=== PATIENT | male | born 1965 | race American Indian/Alaskan Native ===

== ENCOUNTER 2016-12-21 07:06 | Emergency (ER) | payer SELFPAY ==
[2016-12-21] MEDS ORDERED: ZITHROMAX PO ONE (07:47)
[2016-12-21] MEDS ORDERED: ROBITUSSIN DM PO ONE (07:47)
[2016-12-21] MEDS ORDERED: DUONEB 0.5 MG-3 MG/3 ML SOLN IH ONE (07:47)
[2016-12-21] MEDS ORDERED: DELTASONE PO ONE (07:48)
[2016-12-21 08:28] LABS: Basophils % (Auto) 0.5 % (0.0-1.8); Hematocrit 39.7 % (35.5-45.6); Hemoglobin 13.3 gm/dl (11.8-15.2); Mean Corpuscular HGB Conc 34 % (32-34); Mean Corpuscular Hemoglobin 28 pg (28-32); Mean Corpuscular Volume 84 fl (84-94); Platelet Count 213 K/mm3 (140-440); Red Blood Count 4.75 M/mm3 (3.65-5.03); Red Cell Distribution Width 13.8 % (13.2-15.2); White Blood Count 6.3 K/mm3 (4.5-11.0)
[2016-12-21 08:40] LABS: Anion Gap 15 mmol/L; Blood Urea Nitrogen 12 mg/dL (9-20); Calcium 9.2 mg/dL (8.4-10.2); Carbon Dioxide 24 mmol/L (22-30); Chloride 104.9 mmol/L (98-107); Glucose 102 mg/dL (75-100); Potassium 4.3 mmol/L (3.6-5.0); Sodium 140 mmol/L (137-145)
--- NOTE | 2016-12-21 09:11 | XRay Report ---
Chest 2 views: Compared to 06/21/15. History: Rhonchi. PNA Findings: Normal cardiomediastinal silhouette. Trachea is midline. No consolidation, pneumothorax or pleural effusion. Impression: No acute cardiopulmonary findings.
--- NOTE | 2016-12-21 09:23 | Emergency Department Report ---
- General Chief Complaint: Upper Respiratory Infection Stated Complaint: COUGH, CHEST CONGESTION Time Seen by Provider: 12/21/16 07:37 Source: patient Mode of arrival: Ambulatory Limitations: No Limitations - History of Present Illness Initial Comments: 51-year-old male past medical history asthma presents with complaint of 2-3 weeks of productive cough with yellowish greenish sputum. Patient denies smoking. States he has had intermittent fever and chills. Denies any nausea or vomiting no chest pain no palpitations does not feel short of breath. Patient speaking in full sentences awake alert and oriented 3 not in acute distress. States he has not been taking anything for the cough. States he feels slightly wheezy today which is why he came into the ED. No audible wheezing no visible respiratory distress. States he has a slightly runny nose denies any sore throat or earache. Denies any recent travel. Denies any recent contact with anyone who had influenza. no recent hospitalizations. Onset/Timin -: week(s) Severity: moderate Severity scale (0 -10): 6 Consistency: intermittent Improves With: nothing Worsens With: nothing Associated Symptoms: fever, cough - Related Data Previous Rx's Medication Instructions Recorded Last Taken Type Acetaminophen/Codeine [Tylenol #3] 1 tab PO Q6H PRN #12 tab 12/27/13 Unknown Rx Albuterol Sulfate [Ventolin HFA] 2 puff IH Q4H PRN #1 hfa.aer.ad 12/27/13 Unknown Rx Benzonatate [Tessalon Perles] 100 mg PO Q8HR #30 capsule 12/27/13 Unknown Rx methOCARBAMOL [Robaxin] 500 mg PO BID #30 tab 07/27/14 Unknown Rx Azithromycin [Zithromax Z-WILMER] 250 mg PO DAILY #6 tablet 09/06/14 Unknown Rx Promethazine /Codeine 5 ml PO Q6H PRN #120 ml 09/06/14 Unknown Rx [Phenergan/Codeine 6.25-10 mg/5 ml] Acetaminophen/Codeine 1 tab PO Q6H PRN #25 tab 02/03/15 Unknown Rx [Acetaminophen-Codeine #3 TAB] Ibuprofen [Motrin 600 MG tab] 600 mg PO Q8H PRN #30 tablet 02/03/15 Unknown Rx Ibuprofen [Motrin 800 MG tab] 800 mg PO Q8HR PRN #30 tablet 04/06/15 Unknown Rx Prednisone [predniSONE 10 mg 10 mg PO .TAPER #1 tab.ds.pk 04/06/15 Unknown Rx (6-Day Pack, 21 Tabs)] diphenhydrAMINE [Benadryl] 25 mg PO Q6HR PRN #20 capsule 04/06/15 Unknown Rx Albuterol Sulfate [Ventolin HFA] 2 puff IH Q4H PRN #1 hfa.aer.ad 06/21/15 Unknown Rx Azithromycin [Zithromax Z-WILMER] 250 mg PO DAILY #6 tablet 06/21/15 Unknown Rx Prednisone [predniSONE 10 mg 10 mg PO .TAPER #1 tab.ds.pk 06/21/15 Unknown Rx (6-Day Pack, 21 Tabs)] Promethazine /Codeine 5 ml PO Q6H PRN #150 ml 06/21/15 Unknown Rx [Phenergan/Codeine 6.25-10 mg/5 ml] ALBUTEROL Inhaler [ProAir HFA 2 puff IH QID PRN #1 inhalation 12/21/16 Unknown Rx Inhaler] Azithromycin [Zithromax Z-WILMER] 250 mg PO QDAY #4 tablet 12/21/16 Unknown Rx Naproxen [Naprosyn TAB] 375 mg PO BID PRN #20 tablet 12/21/16 Unknown Rx predniSONE [Deltasone] 40 mg PO QDAY #10 tablet 12/21/16 Unknown Rx Allergies Allergy/AdvReac Type Severity Reaction Status Date / Time No Known Allergies Allergy Verified 06/21/15 19:53 ED Review of Systems ROS: Stated complaint: COUGH, CHEST CONGESTION Other details as noted in HPI Constitutional: denies: chills, fever Eyes: denies: eye pain, eye discharge, vision change ENT: denies: ear pain, throat pain Respiratory: cough. denies: shortness of breath, wheezing Cardiovascular: denies: chest pain, palpitations Endocrine: no symptoms reported Gastrointestinal: denies: abdominal pain, nausea, diarrhea Genitourinary: denies: urgency, dysuria Musculoskeletal: denies: back pain, joint swelling, arthralgia Skin: denies: rash, lesions Neurological: denies: headache, weakness, paresthesias Psychiatric: denies: anxiety, depression Hematological/Lymphatic: denies: easy bleeding, easy bruising ED Past Medical Hx - Past Medical History Previous Medical History?: Yes Hx Asthma: Yes (bronchitis) Additional medical history: BRONCHITIS - Surgical History Past Surgical History?: No - Social History Smoking Status: Never Smoker Substance Use Type: None - Medications Home Medications: Home Medications Medication Instructions Recorded Confirmed Last Taken Type Acetaminophen/Codeine [Tylenol #3] 1 tab PO Q6H PRN #12 tab 12/27/13 Unknown Rx Albuterol Sulfate [Ventolin HFA] 2 puff IH Q4H PRN #1 hfa.aer.ad 12/27/13 Unknown Rx Benzonatate [Tessalon Perles] 100 mg PO Q8HR #30 capsule 12/27/13 Unknown Rx methOCARBAMOL [Robaxin] 500 mg PO BID #30 tab 07/27/14 Unknown Rx Azithromycin [Zithromax Z-WILMER] 250 mg PO DAILY #6 tablet 09/06/14 Unknown Rx Promethazine /Codeine 5 ml PO Q6H PRN #120 ml 09/06/14 Unknown Rx [Phenergan/Codeine 6.25-10 mg/5 ml] Acetaminophen/Codeine 1 tab PO Q6H PRN #25 tab 02/03/15 Unknown Rx [Acetaminophen-Codeine #3 TAB] Ibuprofen [Motrin 600 MG tab] 600 mg PO Q8H PRN #30 tablet 02/03/15 Unknown Rx Ibuprofen [Motrin 800 MG tab] 800 mg PO Q8HR PRN #30 tablet 04/06/15 Unknown Rx Prednisone [predniSONE 10 mg 10 mg PO .TAPER #1 tab.ds.pk 04/06/15 Unknown Rx (6-Day Pack, 21 Tabs)] diphenhydrAMINE [Benadryl] 25 mg PO Q6HR PRN #20 capsule 04/06/15 Unknown Rx Albuterol Sulfate [Ventolin HFA] 2 puff IH Q4H PRN #1 hfa.aer.ad 06/21/15 Unknown Rx Azithromycin [Zithromax Z-WILMER] 250 mg PO DAILY #6 tablet 06/21/15 Unknown Rx Prednisone [predniSONE 10 mg 10 mg PO .TAPER #1 tab.ds.pk 06/21/15 Unknown Rx (6-Day Pack, 21 Tabs)] Promethazine /Codeine 5 ml PO Q6H PRN #150 ml 06/21/15 Unknown Rx [Phenergan/Codeine 6.25-10 mg/5 ml] ALBUTEROL Inhaler [ProAir HFA 2 puff IH QID PRN #1 inhalation 12/21/16 Unknown Rx Inhaler] Azithromycin [Zithromax Z-WILMER] 250 mg PO QDAY #4 tablet 12/21/16 Unknown Rx Naproxen [Naprosyn TAB] 375 mg PO BID PRN #20 tablet 12/21/16 Unknown Rx predniSONE [Deltasone] 40 mg PO QDAY #10 tablet 12/21/16 Unknown Rx ED Physical Exam - General Limitations: No Limitations General appearance: alert, in no apparent distress - Head Head exam: Present: atraumatic, normocephalic - Eye Eye exam: Present: normal appearance, PERRL, EOMI - ENT ENT exam: Present: mucous membranes moist - Neck Neck exam: Present: normal inspection, full ROM - Respiratory Respiratory exam: Present: wheezes (minimal wheezing right lower lung field). Absent: respiratory distress - Cardiovascular Cardiovascular Exam: Present: regular rate, normal rhythm. Absent: systolic murmur, diastolic murmur, rubs, gallop - GI/Abdominal GI/Abdominal exam: Present: soft, normal bowel sounds - Rectal Rectal exam: Present: deferred - Extremities Exam Extremities exam: Present: normal inspection, full ROM - Back Exam Back exam: Present: normal inspection, full ROM - Neurological Exam Neurological exam: Present: alert, oriented X3, CN II-XII intact, normal gait - Psychiatric Psychiatric exam: Present: normal affect, normal mood - Skin Skin exam: Present: warm, dry, intact, normal color. Absent: rash ED Course Vital Signs 12/21/16 12/21/16 07:18 08:08 Temperature 98.2 F Pulse Rate 58 L Pulse Rate [ 78 Right Lower Lobe] Respiratory 18 Rate Respiratory 16 Rate [Right Lower Lobe] Blood Pressure 121/80 O2 Sat by Pulse 98 Oximetry ED Medical Decision Making - Lab Data Result diagrams: 12/21/16 07:52 12/21/16 07:52 - Medical Decision Making A/P: Reactive airway disease, acute bronchitis 1-albuterol inhaler refill, nebulizer refill, naproxen when necessary, guaifenessin when necessary, Z-Wilmer, prednsine 5 day course 2- states he will follow up with his primary care doctor this week 3-patient is fully ambulatory upon discharge does not feel short of breath, states he feels significantly better after one nebulizer treatment, o2 sat 99% after walking Critical care attestation.: If time is entered above; I have spent that time in minutes in the direct care of this critically ill patient, excluding procedure time. ED Disposition Clinical Impression: Reactive airway disease Qualifiers: Asthma severity: mild intermittent Asthma complication type: uncomplicated Qualified Code(s): J45.20 - Mild intermittent asthma, uncomplicated Acute bronchitis Qualifiers: Bronchitis organism: unspecified organism Qualified Code(s): J20.9 - Acute bronchitis, unspecified Disposition: DISCHARGED TO HOME OR SELFCARE Is pt being admited?: No Does the pt Need Aspirin: No Condition: Stable Instructions: Acute Bronchitis (ED), Reactive Airways Disease (ED) Prescriptions: ALBUTEROL Inhaler [ProAir HFA Inhaler] 2 puff IH QID PRN #1 inhalation PRN Reason: Shortness Of Breath Azithromycin [Zithromax Z-WILMER] 250 mg PO QDAY #4 tablet Naproxen [Naprosyn TAB] 375 mg PO BID PRN #20 tablet PRN Reason: Cough predniSONE [Deltasone] 40 mg PO QDAY #10 tablet Referrals: GAVI CRAWFORD MD [Staff Physician] - 3-5 Days Forms: Work/School Release Form(ED) Time of Disposition: 09:40
[2016-12-21 09:59] VITALS: BP 115/66
== END 2016-12-21 09:58 | disposition home or self-care (01) ==
LOC: ED 07:06
DX: J45.20 Mild intermittent asthma, uncomplicated (principal); J20.9 Acute bronchitis, unspecified
CPT/HCPCS: 36415; 71020; 80048; 82805; 85025; 99284; J7512

== ENCOUNTER 2019-02-15 12:17 | Emergency (ER) | payer OTHER ==
[2019-02-15 13:02] VITALS: BP 134/77
--- NOTE | 2019-02-15 13:03 | Emergency Department Report ---
Chief Complaint: Upper Respiratory Infection Stated Complaint: FLU LIKE SYM Time Seen by Provider: 02/15/19 13:00 - HPI History of Present Illness: This is a 53 y.o. male that presents to the ER with flu like symptoms x 3 days. CC: productive cough, sore throat, wheezing, myalgia PMH of bronchitis Nonsmoker - Exam Vital Signs: Vital Signs 02/15/19 13:00 Temperature 98.2 F Pulse Rate 66 Respiratory 20 Rate Blood Pressure 134/77 [Right] O2 Sat by Pulse 97 Oximetry MSE screening note: Focused history and physical exam performed. Due to findings the following was ordered: CXR ED Disposition for MSE Condition: Stable
--- NOTE | 2019-02-15 14:01 | XRay Report ---
ROUTINE CHEST, TWO VIEWS: HISTORY: Cough. The trachea, heart, mediastinal contour, lung rivero and bony thorax are unremarkable. IMPRESSION: Unremarkable chest x-ray.
[2019-02-15] MEDS ORDERED: ROBITUSSIN PO ONE (14:19)
[2019-02-15] MEDS ORDERED: DELTASONE PO ONE (14:19)
--- NOTE | 2019-02-15 14:23 | Emergency Department Report ---
Minor Respiratory - HPI Chief Complaint: Upper Respiratory Infection Stated Complaint: FLU LIKE SYM Time Seen by Provider: 02/15/19 13:00 Duration: 2 Days Minor Respiratory: Yes Able to Tolerate Fluids, Yes Cough, No Rhinorrhea, No Sore Throat, No Ear Pain, No Sick Contacts, No Hemoptysis, No Chest Pain, No Shortness of Breath, No Fever ED Review of Systems ROS: Stated complaint: FLU LIKE SYM Other details as noted in HPI Comment: All other systems reviewed and negative ED Past Medical Hx - Past Medical History Hx Asthma: Yes (bronchitis) Additional medical history: BRONCHITIS - Surgical History Past Surgical History?: No - Social History Smoking Status: Never Smoker Substance Use Type: None - Medications Home Medications: Home Medications Medication Instructions Recorded Confirmed Last Taken Type Acetaminophen/Codeine [Tylenol #3] 1 tab PO Q6H PRN #12 tab 12/27/13 Unknown Rx Albuterol Sulfate [Ventolin HFA] 2 puff IH Q4H PRN #1 hfa.aer.ad 12/27/13 Unknown Rx methOCARBAMOL [Robaxin] 500 mg PO BID #30 tab 07/27/14 Unknown Rx Azithromycin [Zithromax Z-WILMER] 250 mg PO DAILY #6 tablet 09/06/14 Unknown Rx Acetaminophen/Codeine [Tylenol 1 tab PO Q6H PRN #25 tab 02/03/15 Unknown Rx /Codeine # 3 tab] Ibuprofen [Motrin 600 MG tab] 600 mg PO Q8H PRN #30 tablet 02/03/15 Unknown Rx Ibuprofen [Motrin 800 MG tab] 800 mg PO Q8HR PRN #30 tablet 04/06/15 Unknown Rx Prednisone [predniSONE 10 mg 10 mg PO .TAPER #1 tab.ds.pk 04/06/15 Unknown Rx (6-Day Pack, 21 Tabs)] diphenhydrAMINE [Benadryl] 25 mg PO Q6HR PRN #20 capsule 04/06/15 Unknown Rx Albuterol Sulfate [Ventolin HFA] 2 puff IH Q4H PRN #1 hfa.aer.ad 06/21/15 Unknown Rx Azithromycin [Zithromax Z-WILMER] 250 mg PO DAILY #6 tablet 06/21/15 Unknown Rx Prednisone [predniSONE 10 mg 10 mg PO .TAPER #1 tab.ds.pk 06/21/15 Unknown Rx (6-Day Pack, 21 Tabs)] Promethazine /Codeine 5 ml PO Q6H PRN #150 ml 06/21/15 Unknown Rx [Phenergan/Codeine 6.25-10 mg/5 ml] ALBUTEROL NEB's [Proventil 0.083% 2.5 mg IH TID PRN #1 box 12/21/16 Unknown Rx NEBS] Azithromycin [Zithromax Z-WILMER] 250 mg PO QDAY #4 tablet 12/21/16 Unknown Rx Naproxen [Naprosyn TAB] 375 mg PO BID PRN #20 tablet 12/21/16 Unknown Rx guaiFENesin DM [Robitussin Dm] 10 ml PO Q6HR PRN #1 bottle 12/21/16 Unknown Rx predniSONE [Deltasone] 40 mg PO QDAY #10 tablet 12/21/16 Unknown Rx ALBUTEROL Inhaler (OR & NICU) 2 puff IH QID PRN #1 inhalation 02/15/19 Unknown Rx [ProAir HFA Inhaler] Benzonatate [Tessalon Perles] 100 mg PO Q8HR #30 capsule 02/15/19 Unknown Rx Promethazine /Codeine 5 ml PO Q6H PRN #100 ml 02/15/19 Unknown Rx [Phenergan/Codeine 6.25-10 mg/5 ml] Minor Respiratory Exam - Exam General: Vital signs noted. No distress. Alert and acting appropriately. HEENT: Yes Moist Mucous Membranes, No Pharyngeal Erythema, No Pharyngeal Exudates, No Rhinorrhea, No Conjuctival Injection, No Frontal Tenderness, No Maxillary Tenderness Ear: Neither TM Bulge, Neither TM Erythema, Neither EAC Pain, Neither EAC Discharge Neck: Yes Supple, No Adenopathy Lungs: Yes Good Air Exchange, No Wheezes, No Ronchi, No Stridor, No Cough, No Labored Respirations, No Retractions, No Use of Accessory Muscles, No Other Abnormal Lung Sounds Heart: Yes Regular, No Murmur Abdomen: Yes Normal Bowel Sounds, No Tenderness, No Peritoneal Signs Skin: No Rash, No Edema Neurologic: Alert and oriented, no deficits. Musculoskeletal: Unremarkable. ED Course Vital Signs 02/15/19 13:00 Temperature 98.2 F Pulse Rate 66 Respiratory 20 Rate Blood Pressure 134/77 [Right] O2 Sat by Pulse 97 Oximetry ED Medical Decision Making - Radiology Data Radiology results: report reviewed, image reviewed ROUTINE CHEST, TWO VIEWS: HISTORY: Cough. The trachea, heart, mediastinal contour, lung rivero and bony thorax are unremarkable. IMPRESSION: Unremarkable chest x-ray. Transcribed By: TTR Dictated By: LILIA CORNELL JR, MD Electronically Authenticated By: LILIA CORNELL JR, MD Signed Date/Time: 02/15/19 1356 - Medical Decision Making 53 y o male presents with a bronchitis. Vital signs are normal patient is not acutely distressed. X-ray shows no acute findings C reported above next Discussed findings with the patient. Patient is in no acute or respiratory distress. Medications given discussed the follow up with primary care physician. Patient is able to speak in clear sentences without any problems. Critical care attestation.: If time is entered above; I have spent that time in minutes in the direct care of this critically ill patient, excluding procedure time. ED Disposition Clinical Impression: Bronchitis Disposition: [id number] TO HOME OR SELFCARE Is pt being admited?: No Does the pt Need Aspirin: No Condition: Stable Instructions: Chronic Bronchitis (ED) Additional Instructions: Make sure to follow up with the primary care physician as discussed. Take all your medications as you've been prescribed. If you have any worsening symptoms or develop new symptoms please return to ED immediately. Prescriptions: Promethazine /Codeine [Phenergan/Codeine 6.25-10 mg/5 ml] 5 ml PO Q6H PRN #100 ml PRN Reason: cough ALBUTEROL Inhaler (OR & NICU) [ProAir HFA Inhaler] 2 puff IH QID PRN #1 inhalation PRN Reason: Shortness Of Breath Benzonatate [Tessalon Perles] 100 mg PO Q8HR #30 capsule Referrals: [facility] [Outside] - 3-5 Days [facility] [Outside] - 3-5 Days Forms: Accompanied Note, Work/School Release Form(ED) Time of Disposition: 14:22
== END 2019-02-15 14:47 | disposition home or self-care (01) ==
LOC: ED 12:17
DX: J40 Bronchitis, not specified as acute or chronic (principal); J45.909 Unspecified asthma, uncomplicated; Z79.899 Other long term (current) drug therapy
CPT/HCPCS: 71046; 99283; J7512